=== PATIENT | male | born 1960 | race Caucasian/White ===

== ENCOUNTER 2017-04-11 04:12 | Emergency (ER) | payer OTHER ==
[~2017-04-11] VITALS: Ht 162.6 cm; Wt 74.8 kg
[2017-04-11 04:42] VITALS: BP 119/85
== END 2017-04-11 04:59 | disposition home or self-care (01) ==
LOC: ER 04:16
DX: Z76.0 Encounter for issue of repeat prescription (principal)
CPT/HCPCS: A4606; Z7610